=== PATIENT | female | born 1985 | race African-American/Black ===

== ENCOUNTER 2016-12-04 22:08 | Emergency (ER) | payer OTHER | END 2016-12-04 23:00 | disposition home or self-care (01) | LOC: BURERS 22:08 | DX: M23.91 Unspecified internal derangement of right knee (principal); G43.909 Migraine, unspecified, not intractable, without status migrainosus | CPT/HCPCS: 99283 ==

== ENCOUNTER 2017-07-17 10:26 | Emergency (ER) | payer OTHER, SELFPAY | END 2017-07-17 11:00 | disposition home or self-care (01) | LOC: BURERS 10:26 | DX: K02.9 Dental caries, unspecified (principal); G43.909 Migraine, unspecified, not intractable, without status migrainosus; F43.10 Post-traumatic stress disorder, unspecified | CPT/HCPCS: 99282 ==

== ENCOUNTER 2018-11-21 14:41 | Emergency (ER) | payer MEDICAID, SELFPAY | END 2018-11-21 15:52 | disposition home or self-care (01) | LOC: BURERS 14:41 | DX: K04.7 Periapical abscess without sinus (principal); K02.9 Dental caries, unspecified | CPT/HCPCS: 99282 ==

== ENCOUNTER 2021-10-07 21:27 | Emergency (ER) | payer OTHER ==
[2021-10-07] MEDS ORDERED: Ondansetron PF 4 MG/2 ML Vial ONE (22:16)
[2021-10-07 22:35] LABS: #Basophils 0.1 thou/uL (0.0-0.2); #Eosinphils 0.1 thou/uL (0.0-0.7); #Lymphocytes 3.3 thou/uL (1.20-3.40); #Monocytes 0.3 thou/uL (0.11-0.59); #Neutrophils 4.4 thou/uL (1.40-6.50); %Basophils 0.7 % (0.0-1.0); %Eosinophils 1.7 % (0.0-10.0); %Lymphocytes 39.7 % (21.0-51.0); %Monocytes 3.8 % (0.0-10.0); %Neutrophils 54.2 % (42.0-75.0); Hemoglobin 11.2 g/dL (12.0-16.0); Mean Corpuscular HGB CONC 31.7 g/dL (32.0-36.0); Mean Corpuscular Hemoglobin 26.8 pg (27.0-31.0); Mean Corpuscular Volume 84.7 fL (78.0-98.0); Mean Platelet Volume 10.6 fL (7.4-10.4); Platelet Count 207 thou/uL (130-400); RBC Distribution Width 13.4 % (11.5-14.5); Red Blood Cell (RBC) Count 4.19 mill/uL (4.20-5.40); White Blood Cell (WBC) Count 8.2 thou/uL (4.8-10.8)
[2021-10-07 22:51] LABS: ALT (SGPT) 12 U/L (8-55); AST (SGOT) 14 U/L (5-34); Albumin 3.9 g/dL (3.5-5.0); Alkaline Phosphatase 84 U/L (40-110); Anion Gap 13 mmol/L (10-20); BUN (Urea Nitrogen) 11 mg/dL (7.0-18.7); Bilirubin, Total 0.3 mg/dL (0.2-1.2); Calc. Creatinine Clearance 0 mL/min (70-130); Calcium 9.3 mg/dL (7.8-10.44); Carbon Dioxide 27 mmol/L (22-29); Chloride 109 mmol/L (98-107); Glucose 63 mg/dL (70-105); Lipase 35 U/L (8-78); Potassium 3.5 mmol/L (3.5-5.1); Protein, Total 7.9 g/dL (6.0-8.3); Sodium 145 mmol/L (136-145)
== END 2021-10-07 23:25 | disposition home or self-care (01) ==
LOC: BURERS 21:27
DX: R10.10 Upper abdominal pain, unspecified (principal); R10.816 Epigastric abdominal tenderness; R10.812 Left upper quadrant abdominal tenderness; R10.811 Right upper quadrant abdominal tenderness; R11.2 Nausea with vomiting, unspecified
CPT/HCPCS: 74177; 80053; 83605; 83690; 85025; 96374; J2405

== ENCOUNTER 2023-02-21 13:27 | Emergency (ER) | payer OTHER ==
[2023-02-21] MEDS ORDERED: traMADol HCl 50 MG TAB ONE (13:56)
[2023-02-21 13:57] LABS: Bilirubin Negative (Negative); Blood, Urine Trace (Negative); Clarity Clear (Clear); Glucose, Urine (Dipstick) Negative (Negative); Ketone, Urine Negative (Negative); Leukocyte Negative (Negative); Nitrite Negative (Negative); Protein, Urine (Dipstick) Negative (Neg-Trace)
[2023-02-21 14:00] LABS: Bacteria/HPF 1+ HPF (None Seen); CAUTI Indications for Culture Dysuria,urgency,freq; Mucous/LPF 1+ LPF (<2+); RBC/HPF 0-3 HPF (0-3); Squamous Epithelial 0-3 HPF (0-3); WBC/HPF 0-3 HPF (0-3)
[2023-02-21 14:03] LABS: Urine Culture Reflex No No
== END 2023-02-21 14:10 | disposition home or self-care (01) ==
LOC: BURERS 13:27
DX: N39.0 Urinary tract infection, site not specified (principal)
CPT/HCPCS: 81001; 99284

== ENCOUNTER 2023-05-15 08:53 | Emergency (ER) | payer OTHER, SELFPAY ==
[2023-05-15 09:22] LABS: Bilirubin Negative (Negative); Blood, Urine Negative (Negative); Clarity Clear (Clear); Glucose, Urine (Dipstick) Negative (Negative); Ketone, Urine Negative (Negative); Leukocyte Negative (Negative); Nitrite Negative (Negative); Protein, Urine (Dipstick) Negative (Neg-Trace); pH, Urine 6.5 (5.0-9.0)
[2023-05-15] MEDS ORDERED: Ondansetron PF 4 MG/2 ML Vial ONE (09:25)
[2023-05-15 09:31] LABS: Bacteria/HPF None Seen HPF (None Seen); CAUTI Indications for Culture Dysuria,urgency,freq; RBC/HPF 0-3 HPF (0-3); Squamous Epithelial 0-3 HPF (0-3); WBC/HPF 0-3 HPF (0-3)
[2023-05-15 09:33] LABS: Urine Culture Reflex No No
[2023-05-15 09:35] LABS: #Basophils 0.1 thou/uL (0.0-0.2); #Eosinphils 0.2 thou/uL (0.0-0.7); #Lymphocytes 3.6 thou/uL (1.20-3.40); #Monocytes 0.3 thou/uL (0.11-0.59); #Neutrophils 5.6 thou/uL (1.40-6.50); %Basophils 0.7 % (0.0-1.0); %Eosinophils 1.8 % (0.0-10.0); %Lymphocytes 37.1 % (21.0-51.0); %Monocytes 3.3 % (0.0-10.0); %Neutrophils 57.2 % (42.0-75.0); Hematocrit 37.9 % (36.0-47.0); Hemoglobin 11.5 g/dL (12.0-16.0); Hypochromia SLIGHT = 6-15 cells (100X) (0-5/hpf); MDiff Complete? YES; Mean Corpuscular HGB CONC 30.3 g/dL (32.0-36.0); Mean Corpuscular Volume 82.5 fl (78.0-98.0); Mean Platelet Volume 9.9 fL (7.4-10.4); Platelet Count 248 10x3/uL (130-400); RBC Distribution Width 13.9 % (11.5-14.5); Red Blood Cell (RBC) Count 4.59 mill/uL (4.20-5.40); White Blood Cell (WBC) Count 9.8 10x3/uL (4.8-10.8)
[2023-05-15 09:42] LABS: ALT (SGPT) 18 U/L (8-55); AST (SGOT) 18 U/L (5-34); Alkaline Phosphatase 71 U/L (40-110); Anion Gap 15 mmol/L (10-20); BUN (Urea Nitrogen) 9 mg/dL (7.0-18.7); Bilirubin, Total 0.3 mg/dL (0.2-1.2); Calc. Creatinine Clearance 0 mL/min (70-130); Calcium 9.3 mg/dL (7.8-10.44); Carbon Dioxide 24 mmol/L (22-29); Chloride 107 mmol/L (98-107); Estimated GFR 82; Globulin 4.4 g/dL (2.4-3.5); Glucose 106 mg/dL (70-105); Potassium 3.7 mmol/L (3.5-5.1); Protein, Total 8.4 g/dL (6.0-8.3); Sodium 142 mmol/L (136-145)
[2023-05-15] MEDS ORDERED: Iopamidol 370 76% 100 ML VIAL ONE (12:04)
== END 2023-05-15 11:04 | disposition home or self-care (01) ==
LOC: BURERS 08:53
DX: R10.30 Lower abdominal pain, unspecified (principal)
CPT/HCPCS: 74177; 80053; 81001; 85025; 96374; J2405; Q9967

== ENCOUNTER 2023-08-07 11:37 | Emergency (ER) | payer BC ==
[2023-08-07] MEDS ORDERED: Cyclobenzaprine 10 MG TAB ONE (12:40)
[2023-08-07] MEDS ORDERED: Ketorolac Tromethamine 30 MG (1 mL) VIAL ONE (12:40)
[2023-08-07 12:44] LABS: Bilirubin Negative (Negative); Blood, Urine Negative (Negative); Clarity Clear (Clear); Glucose, Urine (Dipstick) Negative (Negative); Ketone, Urine Negative (Negative); Leukocyte Negative (Negative); Nitrite Negative (Negative); Protein, Urine (Dipstick) Negative (Neg-Trace)
[2023-08-07 12:46] LABS: Bacteria/HPF None Seen HPF (None Seen); CAUTI Indications for Culture Dysuria,urgency,freq; Pregnancy Test - Urine (BHCG) Negative (Negative); Pregu Control Background? CLEAR/WHITE (CLR/WHITE); Pregu Control Bar Appear? YES (CONTROL BAR); RBC/HPF None Seen HPF (0-3); Squamous Epithelial 0-3 HPF (0-3); Urine Culture Reflex No No; WBC/HPF 0-3 HPF (0-3)
== END 2023-08-07 13:09 | disposition home or self-care (01) ==
LOC: BURERS 11:37
DX: M62.830 Muscle spasm of back (principal)
CPT/HCPCS: 81001; 81025; 96372; 99283; J1885

== ENCOUNTER 2023-11-07 14:04 | Emergency (ER) | payer BC ==
[~2023-11-07 14:04] MED LIST: Iopamidol 370 76% 100 ML VIAL ONE
[2023-11-07 14:40] LABS: #Basophils 0.1 thou/uL (0.0-0.2); #Eosinphils 0.2 thou/uL (0.0-0.7); #Lymphocytes 4.1 thou/uL (1.20-3.40); #Monocytes 0.4 thou/uL (0.11-0.59); #Neutrophils 5.2 thou/uL (1.40-6.50); %Basophils 0.7 % (0.0-1.0); %Eosinophils 1.6 % (0.0-10.0); %Lymphocytes 41.1 % (21.0-51.0); %Neutrophils 52.5 % (42.0-75.0); Hemoglobin 11.8 g/dL (12.0-16.0); Mean Corpuscular HGB CONC 30.4 g/dL (32.0-36.0); Mean Corpuscular Hemoglobin 25.1 pg (27.0-31.0); Mean Corpuscular Volume 82.5 fl (78.0-98.0); Mean Platelet Volume 8.7 fL (7.4-10.4); Platelet Count 241 10x3/uL (130-400); RBC Distribution Width 14.2 % (11.5-14.5); Red Blood Cell (RBC) Count 4.72 mill/uL (4.20-5.40); White Blood Cell (WBC) Count 9.9 10x3/uL (4.8-10.8)
[2023-11-07] MEDS ORDERED: Acetaminophen 500 MG TAB ONE (14:45)
[2023-11-07 14:55] LABS: Bilirubin Small (Negative); Blood, Urine Trace (Negative); Clarity Clear (Clear); Glucose, Urine (Dipstick) Negative (Negative); Ketone, Urine Trace mg/dL (Negative); Leukocyte Negative (Negative); Nitrite Negative (Negative); Protein, Urine (Dipstick) Trace mg/dL (Neg-Trace); pH, Urine 5.5 (5.0-9.0)
[2023-11-07 14:57] LABS: Specific Gravity, Urine 1.033 (1.002-1.036)
[2023-11-07 14:57] LABS: ALT (SGPT) 16 U/L (8-55); AST (SGOT) 19 U/L (5-34); Albumin 3.9 g/dL (3.5-5.0); Alkaline Phosphatase 69 U/L (40-110); Anion Gap 12 mmol/L (10-20); BUN (Urea Nitrogen) 11 mg/dL (7.0-18.7); Bilirubin, Total 0.3 mg/dL (0.2-1.2); Calc. Creatinine Clearance 0 mL/min (70-130); Calcium 9.1 mg/dL (7.8-10.44); Carbon Dioxide 24 mmol/L (22-29); Chloride 108 mmol/L (98-107); Estimated GFR 83; Globulin 4.3 g/dL (2.4-3.5); Glucose 114 mg/dL (70-105); Potassium 3.5 mmol/L (3.5-5.1); Protein, Total 8.2 g/dL (6.0-8.3); Sodium 140 mmol/L (136-145); Troponin I 0.017 ng/mL (< 0.028)
[2023-11-07 14:58] LABS: Prothrombin Time 12.7 sec (12.0-14.7)
[2023-11-07 14:59] LABS: PTT 30.4 sec (22.9-36.1)
[2023-11-07 15:01] LABS: D-Dimer Test 0.92 mcg/mL (0.27-0.43)
[2023-11-07 15:02] LABS: Amphetamine Not Detected (NotDetected); Barbiturates Screen Not Detected (NotDetected); Benzodiazepine Screen Detected (NotDetected); Cocaine Metabolite Screen Not Detected (NotDetected); Methadone Not Detected (NotDetected); Methamphetamine Not Detected (NotDetected); Opiate Screen Detected (NotDetected); Oxycodone Screen Not Detected (NotDetected); Phencyclidine (PCP) Not Detected (NotDetected); THC/Cannabinoid Screen Not Detected (NotDetected); Tricyclic Screen Not Detected (NotDetected)
[2023-11-07 15:11] LABS: Bacteria/HPF Rare-Few HPF (None Seen); CAUTI Indications for Culture Dysuria,urgency,freq; RBC/HPF 0-3 HPF (0-3); WBC/HPF None Seen HPF (0-3)
[2023-11-07 15:12] LABS: Urine Culture Reflex No No
[2023-11-07 15:14] LABS: Influenza A by NAA Not Detected (NotDetected); Influenza B by NAA Not Detected (NotDetected); SARS-CoV-2 NAA Rapid Test Not Detected (NotDetected)
== END 2023-11-07 16:48 | disposition home or self-care (01) ==
LOC: BURERS 14:04
DX: I31.39 Other pericardial effusion (noninflammatory) (principal)
CPT/HCPCS: 71045; 71275; 80053; 80306; 81001; 83880; 84484; 85025; 85379; 85610; 85730; 93005; 94760; Q9967

== ENCOUNTER 2025-04-29 18:09 | Emergency (ER) | payer OTHER ==
[2025-04-29] MEDS ORDERED: HYDROcodone/Acetaminophen 10/325 mg Tablet ONE (18:24)
[2025-04-29] MEDS ORDERED: Amoxicillin/Potassium Clav 875 MG TAB ONE (18:24)
== END 2025-04-29 18:50 | disposition home or self-care (01) ==
LOC: BURERS 18:09
DX: K04.7 Periapical abscess without sinus (principal)
CPT/HCPCS: 99283; J3490